=== PATIENT | male | born 1990 | race Caucasian/White ===

== ENCOUNTER 2021-07-28 20:09 | Emergency (ER) | payer BC ==
[2021-07-28 22:21] LABS: HEMOGLOBIN 14.6 gm/dl (14.0-17.5); RED BLOOD COUNT 5.09 M/UL (4.20-5.50); WHITE BLOOD COUNT 7.8 K/UL (4.5-11.0)
[2021-07-28 22:42] LABS: BUN/CREATININE RATIO 17 (0-10)
== END 2021-07-29 04:21 | disposition home or self-care (01) ==
LOC: ER1 20:09
PROVIDERS: Physician Assistant
DX: R07.9 Chest pain, unspecified (principal); R06.02 Shortness of breath
CPT/HCPCS: 71045; 80053; 82550; 82553; 83874; 84484; 85025; 93005; 99285